=== PATIENT | male | born 1955 | race Caucasian/White ===

== ENCOUNTER 2024-06-23 04:07 | Day surgery (SDC) | payer BC ==
[2024-06-22 12:24] VITALS: BMI 20.6
[2024-06-23] MEDS ORDERED: VANCOMYCIN 1,000 MG VIAL (RESTRICTED TO ID ONLY) ONE ×2 (12:42→12:55)
[2024-06-23] MEDS ORDERED: GENTAMICIN SO4 80 MG/2 ML VIAL ONE ×2 (12:43→12:55)
[2024-06-23] MEDS ORDERED: LIDOCAINE HCL 1%, 10 MG/ML (20ML VIAL) ONE (12:55)
[2024-06-23] MEDS ORDERED: BUPIVACAINE HCL/PF 0.5% (5MG/ML) 10 ML VIAL ONE (12:56)
[2024-06-23] MEDS ORDERED: PROPOFOL 20 ML ONE ×2 (13:28→15:35)
[2024-06-23] MEDS ORDERED: MIDAZOLAM HCL 2 MG/2 ML SINGLE DOSE VIAL ONE (13:28)
[2024-06-23] MEDS ORDERED: LIDOCAINE HCL/PF 2% SDV 5ML VIAL ONE (13:28)
[2024-06-23] MEDS ORDERED: ePHEDrine SULFATE 50 MG/1 ML AMPULE ONE (14:00)
[2024-06-23] MEDS ORDERED: ceFAZolin SODIUM 1 GM VIAL ONE (14:05)
[2024-06-23] MEDS ORDERED: DEXAMETHASONE SOD PHOSPHATE 4 MG/1 ML VIAL ONE (14:05)
[2024-06-23] MEDS ORDERED: ONDANSETRON 4 MG/2 ML VIAL ONE ×2 (14:05→15:40)
[2024-06-23] MEDS ORDERED: PHENYLEPHRINE HCL 10 MG/1 ML SINGLE DOSE VIAL ONE (14:08)
[2024-06-23] MEDS: ceFAZolin SODIUM 1 GM VIAL IVPB ONE (14:08)
[2024-06-23] MEDS: LIDOCAINE HCL 1%, 10 MG/ML (20ML VIAL) INF ONE (14:16)
[2024-06-23] MEDS: BUPIVACAINE HCL/PF 0.5% (5 MG/ML) 30 ML VIAL IJ ONE (14:16)
[2024-06-23] MEDS ORDERED: ONDANSETRON 4 MG/2 ML VIAL IVPUSH PRN (16:49)
[2024-06-23] MEDS ORDERED: LACTATED RINGERS SOLUTION 1,000 ML IV SCH (17:00)
[2024-06-23] MEDS: LACTATED RINGERS SOLUTION 1,000 ML IV SCH (17:29)
[2024-06-23] MEDS ORDERED: GABAPENTIN 100 MG CAPSULE PO SCH (17:30)
[2024-06-23] MEDS: GENTAMICIN 80 MG PREMIXED IVPB 80 MG/100 ML BAG IVPB STA (17:30)
[2024-06-23] MEDS: VANCOMYCIN/WATER FOR INJ (PEG) 1,000 MG/200 ML BAG IVPB ONE (17:31)
[2024-06-23] MEDS: oxyCODONE HCL 5 MG TABLET PO PRN (19:01)
[2024-06-23] MEDS: CEFAZOLIN SODIUM 2 GM in DEXTROSE 5%-WATER 100 ML IVPB SCH (21:58)
[2024-06-23] MEDS: MONTELUKAST NA 10 MG TABLET PO SCH (21:59)
[2024-06-23] MEDS: INSULIN ASPART SLIDING SCALE (NOVOLOG) 1 VIAL SQ SCH (22:00)
[2024-06-24] MEDS: TAMSULOSIN HCL 0.4 MG CAP PO SCH (06:23)
[2024-06-24] MEDS: FINASTERIDE 5 MG TABLET (FP) PO SCH (09:10)
[2024-06-24] MEDS: PANTOPRAZOLE 40 MG TABLET PO SCH (09:10)
[2024-06-24] MEDS ORDERED: GLIMEPIRIDE 1 MG TABLET PO SCH (10:00)
[2024-06-24 13:55] VITALS: BP 113/70; PULSE 74; RESP 20; TEMP 98.1
[2024-06-24] MEDS: ACETAMINOPHEN 500 MG TABLET (FP) PO PRN (15:16)
== END 2024-06-24 16:22 | disposition home or self-care (01) ==
LOC: JASUSAT 04:07 → SUATTDRO 04:07 → JASU-SURG 04:07 → J7W 18:19 → JASUSAT 06-24 16:22
PROVIDERS: ATTEND Urology
PROC: 0VU Male Reproductive System, Supplement (ICD-10-PCS; principal; 2024-06-23 13:00)
DX: N52.8 Other male erectile dysfunction (principal)
CPT/HCPCS: 54405; C1813; 82962; 94760; C2622